=== PATIENT | male | born 1995 | race Caucasian/White ===

== ENCOUNTER 2019-04-18 15:57 | Outpatient (CLI) | payer OTHER ==
--- NOTE | 2019-04-19 14:30 | MRI Report ---
Reason: UNSPECIFIED INJURY OF UNSPECIFIED LOWER LEG,INITIA Procedure Date: 04/18/2019 Accession Number: [id number] / [id number] Procedure: MRI - Knee LT W/O CPT Code: FULL RESULT: EXAM: LEFT KNEE MRI WITHOUT CONTRAST EXAM DATE: 04/18/2019 04:55 PM. CLINICAL HISTORY: Injury of unspecified lower leg, initial encounter.. Status post fall downstairs. COMPARISON: None. TECHNIQUE: Multiplanar, multisequence T1-weighted and fluid-sensitive sequences of the knee without contrast. Other: None. FINDINGS: Bones: Mild impaction fracture posterior margin lateral tibial plateau and to a lesser extent medial tibial plateau. Mild lateral patellar subluxation. Trochlear groove depth and tibial tubercle to trochlear groove distance within normal limits. Articular Cartilage: Unremarkable. Medial Meniscus: Radial tear throughout the central substance posterior horn and into the root. Lateral Meniscus: Radial tear through the substance adjacent to the free edge at the junction of the anterior horn and body. Cruciate Ligaments: Diffuse distortion anterior cruciate ligament. Intact fibers difficult to discern proximally. Torn fibers extend into the anterior intercondylar notch and along the posterior lateral margin medial femoral condyle. Posterior cruciate ligament intact. Collateral Ligaments: Mild thickening and adjacent edema proximal aspects intact medial and lateral collateral ligaments. Tendons: The quadriceps, patellar, semimembranosus, and popliteus tendons are unremarkable. Musculature: No fatty atrophy. Minimal edema in the vastus medialis and vastus lateralis muscles and popliteus muscle. Other: Large joint effusion. No popliteal cyst. 0.3 cm triangular-shaped filling defect in the fluid at the posterior medial aspect intercondylar notch. The medial and lateral retinacula are intact. Mild subcutaneous edema anteriorly. Mild reactive edema in the fat pads. IMPRESSION: 1. Likely complete disruption anterior cruciate ligament. 2. Grade 1 sprains medial and lateral collateral ligaments. 3. Diffuse radial tear posterior horn and root medial meniscus. 4. Small radial tear anterior horn lateral meniscus. 5. Large joint effusion. Possible 0.3 cm intra-articular body versus focal synovitis posteriorly. 6. Mild impaction fractures posterior margins lateral and medial tibial plateaus. RADIA
== END 2019-04-18 15:58 | disposition home or self-care (01) ==
LOC: DI 15:57
PROVIDERS: ATTEND Physician Assistant
DX: S83.422A Sprain of lateral collateral ligament of left knee, initial encounter (principal); S83.412A Sprain of medial collateral ligament of left knee, initial encounter; S83.282A Other tear of lateral meniscus, current injury, left knee, initial encounter; S83.242A Other tear of medial meniscus, current injury, left knee, initial encounter; M25.462 Effusion, left knee

== ENCOUNTER 2019-05-17 07:16 | Day surgery (SDC) | payer OTHER ==
[2019-05-17] MEDS ORDERED: CEFAZOLIN SODIUM IN 0.9 % NACL 0 GM/0 ML BAG IV ONE (07:31)
[2019-05-17 07:41] VITALS: BP 128/80
[2019-05-17] MEDS ORDERED: LACTATED RINGERS 1,000 ML IV ONE (08:04)
--- NOTE | 2019-05-17 08:20 | ANESTHESIA ---
Pre-Anesthesia VS, & Labs - Diagnosis left ACL repair - Procedure Left ACL repair Vital Signs: Temp Pulse Resp BP Pulse Ox 36.3 C L 65 18 128/80 97 05/17/19 07:25 05/17/19 07:25 05/17/19 07:25 05/17/19 07:25 05/17/19 07:25 Height 5 ft 10 in Weight (kg) 94.8 kg - NPO >8 hours - Lab Results Lab results reviewed: No Home Medications and Allergies Home Medications: Ambulatory Orders No Known Home Medications 05/15/19 No Known Home Medications 05/15/19 Allergies/Adverse Reactions: Allergies Allergy/AdvReac Type Severity Reaction Status Date / Time No Known Drug Allergies Allergy Verified 05/15/19 11:45 Anes History & Medical History - Anesthetic History Anesthesia Complications: reports: No previous complications Family history of Anesthesia Complications: Denies Family history of Malignant Hyperthermia: Denies - Medical History Cardiovascular: reports: None Pulmonary: reports: None Gastrointestinal: reports: None Urinary: reports: None Neuro: reports: None Musculoskeletal: reports: Other Endocrine/Autoimmune: reports: None Blood Disorders: reports: None Skin: reports: None Smoking Status: Never smoker Psychosocial: reports: No issues indicated Exam General: Alert, Oriented x3, Cooperative Dental: WNL Mouth Opening: Greater than 4 Fingerbreadths Neck Mobility: Normal Mallampati classification: I Thyromental Distance: greater than 6 cm Respiratory: Lungs clear Cardiovascular: Regular rate Mental/Cognitive Status: Alert/Oriented X3 Cognitive Status: Within normal limits Plan Anesthesia Type: General, Femoral Block Consent for Procedure(s) Verified and Reviewed: Yes Code Status: Attempt Resuscitation ASA classification: 1-Healthy patient Is this case an emergency?: No
[2019-05-17] MEDS ORDERED: BUPIVACAINE 0.25%-EPI 1:200000 PF 30 ML VIAL ONE ×2 (08:34→08:35)
[2019-05-17] MEDS ORDERED: EPINEPHrine 1 MG/ML AMP ONE (08:36)
== END 2019-05-17 07:17 | disposition home or self-care (01) ==
LOC: SDS 07:16
PROVIDERS: ATTEND Orthopaedic Surgery
DX: S80.812A Abrasion, left lower leg, initial encounter (principal); Z53.09 Procedure and treatment not carried out because of other contraindication; X58.XXXA Exposure to other specified factors, initial encounter

== ENCOUNTER 2019-06-01 07:24 | Day surgery (SDC) | payer OTHER ==
[2019-06-01] MEDS ORDERED: ONDANSETRON 4 MG/2 ML VIAL IVP ONE (07:25)
[2019-06-01] MEDS ORDERED: PROPOFOL 200 MG/20 ML VIAL IVP ONE (07:25)
[2019-06-01] MEDS ORDERED: ROCURONIUM 50 MG/5 ML VIAL IVP ONE (07:25)
[2019-06-01] MEDS ORDERED: GLYCOPYRROLATE 1 MG/5 ML VIAL IVP ONE (07:25)
[2019-06-01] MEDS ORDERED: KETOROLAC 30 MG/ML VIAL IVP ONE (07:25)
[2019-06-01] MEDS ORDERED: fentaNYL 100 MCG/2 ML VIAL IVP ONE (07:25)
[2019-06-01] MEDS ORDERED: HYDROmorphone 1 MG/ML CARPUJECT IVP ONE (07:25)
[2019-06-01] MEDS ORDERED: MIDAZOLAM 2 MG/2 ML VIAL IVP ONE (07:25)
[2019-06-01] MEDS ORDERED: NEOSTIGMINE 1 MG/1 ML 10 ML MDV IVP ONE (07:25)
[2019-06-01] MEDS ORDERED: ACETAMINOPHEN 1,000 MG/100 ML 100 ML IV ONE (07:25)
[2019-06-01] MEDS ORDERED: LACTATED RINGERS 1,000 ML IV ONE ×2 (07:43→10:04)
[2019-06-01] MEDS ORDERED: EPINEPHrine 1 MG/ML AMP ONE (08:03)
[2019-06-01] MEDS ORDERED: CEFAZOLIN SODIUM IN 0.9 % NACL 2 GM/100 ML BAG IV ONE (08:04)
[2019-06-01] MEDS ORDERED: BUPIVACAINE 0.25% PF 30 ML VIAL ONE ×2 (08:04→09:05)
--- NOTE | 2019-06-01 08:05 | ANESTHESIA ---
Pre-Anesthesia VS, & Labs - Diagnosis left ACL and meniscal tears - Procedure left ACL repair, left meniscal tear Height 5 ft 10 in - NPO >8 hours Home Medications and Allergies No Known Home Medications 05/15/19 Allergies/Adverse Reactions: Allergies Allergy/AdvReac Type Severity Reaction Status Date / Time No Known Drug Allergies Allergy Verified 05/15/19 11:45 Anes History & Medical History - Anesthetic History Anesthesia Complications: reports: No previous complications Family history of Anesthesia Complications: Denies Family history of Malignant Hyperthermia: Denies - Medical History Cardiovascular: reports: None Pulmonary: reports: None Gastrointestinal: reports: None Urinary: reports: None Neuro: reports: None Musculoskeletal: reports: Other Endocrine/Autoimmune: reports: None Blood Disorders: reports: None Skin: reports: None Smoking Status: Never smoker Exam General: Alert Dental: WNL Mallampati classification: II Thyromental Distance: greater than 6 cm Respiratory: Lungs clear Cardiovascular: Regular rate, Normal S1, Normal S2 Plan Anesthesia Type: General Consent for Procedure(s) Verified and Reviewed: Yes Code Status: Attempt Resuscitation ASA classification: 1-Healthy patient Is this case an emergency?: No
[2019-06-01] MEDS ORDERED: BUPIVACAINE 0.25% PF 30 ML VIAL SUBQ ONE ×2 (09:49→11:43)
--- NOTE | 2019-06-01 10:01 | ANESTHESIA PROCEDURE NOTE ---
Diagnosis: ACL tear left knee Procedure: left femoral nerve block Height and Weight: Height 5 ft 10 in Weight (kg) 90 kg Vital Signs: Temp Pulse Resp BP Pulse Ox 36.1 C L 74 15 126/81 H 95 06/01/19 07:47 06/01/19 07:47 06/01/19 07:47 06/01/19 07:47 06/01/19 07:47 Allergies No Known Drug Allergies Allergy (Verified 05/15/19 11:45) Requesting Provider: Von Location: [facility] ASA classification: 1-Healthy patient Is this case an emergency?: No Anes. Monitoring and Equipment: Non-invasive BP, Pulse oximetery Anes. Procedure Start Time: 09:50 Anes. Procedure Stop Time: 09:58 Procedure Notes: Patient sedated with Fentanyl 100mcg, Versed 2mg. US guided FNB, with clear view of FA/FN. 22 G stimuplex needle 50mm under guidance, needle in view prior to injection. 0.5 Bupivicaine 30cc with 150 mcg epinephrine and 8mg Decadron added injected in 5cc increments, patient tolerated well.
[2019-06-01] MEDS ORDERED: oxyCODONE 5 MG TABLET PO PRN (12:10)
[2019-06-01] MEDS ORDERED: ONDANSETRON 4 MG/2 ML VIAL IVP PRN (12:10)
--- NOTE | 2019-06-01 12:20 | OPERATIVE REPORT ---
Operative Report - Other Other Information/Narrative: Date of Surgery: 01 June 2019 Pre-Op Diagnosis: Left ACL tear, possible medial meniscus tear, possible lateral meniscus tear Procedure: Left ACL reconstruction with patellar tendon autograft, left lateral meniscus debridement Postop Diagnosis: Left ACL tear, lateral meniscus tear Primary Surgeon: Benedict Longoria Secondary Surgeon: Andreas Lainez Complications: None Tourniquet Time: 130 minutes EBL: 25 Implants: Arthrex BTB Tightrope. Arthrex 9 mm x 20 mm Metal Interference Screw Graft Dimensions: Patellar bone block was 22 mm. Tibial bone block was 30 mm. Total length was 97. Tunnel Size: 10 mm Postoperative Protocol: Typical ACL without modification Indication For Surgery: 23-year-old male sustained a knee injury in March of this year. He underwent physical therapy he has had persistent pain and instability with an examination consistent with an ACL tear and meniscus injuries. The medial meniscus tear was peripheral and on the MRI it looks like it may have healed we discussed nonoperative and operative management. He desired to return to cutting sports and had instability with day-to-day living so surgery was indicated. The risks, benefits, and alternatives were discussed. Risks include pain, bleeding, infection, knee stiffness, graft rupture, graft harvest pain, damage to nearby structures and cartilage, lack of symptom relief, need for further surgery, DVT, PE, stroke, and . Written consent was obtained. Examination Under Anesthesia: ROM showed full extension but flexion to 120, flexion to 125 was obtained and some popping was felt. Stable dial at 30 & 90 degrees. Stable to varus and valgus stressing at 0 & 30 degrees. 2A Nini. Abnormal Pivot shift. No mechanical sensation Diagnostic Arthroscopy: None loose bodies. Synovium injected and prolific especially near the fat pad. Patella cartilage intact. Trochlear cartilage superficial linear fissuring. Medial femoral condyle cartilage showed some mottling and very superficial marbling. Medial tibial plateau cartilage intact. Medial meniscus no unstable tear was appreciated, it was probed extensively from the top and the bottom. ACL was torn from the femur and scarred to the PCL. PCL was intact. Lateral femoral condyle cartilage normal. Lateral tibial plateau cartilage normal. Lateral meniscus radial tear of the body in the white white zone which was debrided to a smooth contour and a stable base. Procedure in Detail: The patient was met in the pre-operative hold area on the day of the procedure. The operative extremity was signed and questions were answered. The patient was brought to the operating room and a general anesthetic was administered. Supine position was used and bony prominences were padded. An examination under anesthesia was performed. Standard prepping and draping was performed. A time out confirmed patient identification, laterality, procedure, allergies, antibiotics, and images. An Esmarch was used to exsanguinate the limb and the tourniquet was elevated to 250 mmHg. Patellar Tendon Graft [place]: A 6 cm incision was made just medial to the midline of the knee from the inferior pole of the patellar tendon to the tibial tubercle. Sharp dissection was brought down to the peritenon and full-thickness skin flaps were created. I then made a midline longitudinal incision in the peritenon and dissected it off the underlying patellar tendon. I then measured the width of the tendon and made bejarano for the central third. A 10 blade was used to cut the tendon at these bejarano in line with its fibers from the patella to the tibial tubercle. I then used Bovie electrocautery to pramod out my patellar and tibial bone blocks at 22 mm for the patella and a 30 mm for the tibia. I then straighten the knee and harvested a triangular bone block from the patella and a trapezoidal bone block from the tibia using a sagittal saw and a curved osteotome. There were no associated fractures. I then brought the graft to the back table and prepped it for the tibia to be 10 mm and the patella to be 9.5 mm. The patella was bulletized in a single 2.0 mm drill hole was placed. 2 drill holes were placed in the tibia. A standard diagnostic arthroscopy of the knee was performed through ant erolateral and anteromedial portal sites. The anteromedial portal was created under direct visualization after localizing with a spinal needle. The findings can be found above. I then proceeded to debride the lateral meniscus with biters and a shaver until a stable smooth edge was. All the work was done in the white white zone. ACL Prep: I then used a sucker shaver and a radiofrequency ablation wand to release all residual ACL tissue off of the lateral wall. I debrided all excess tissue from the notch. I placed the camera into the anteromedial portal and ensured that I was cleared all the way to the back wall. I then brought the flip cutter aiming device through the lateral portal. I positioned it into the central position of the [place] ACL footprint on the femur ensuring to leave a 2 mm back wall and stay off of the distal articular cartilage. Once satisfied with the position, the bullet was brought down to the skin and a pramod was made. A 2 cm longitudinal skin incision was made and the IT band was split in line with its fibers. A sen rake was used to retract the IT band posterior and the bullet was brought down to the lateral femoral wall. An appropriately sized flip cutter was then drilled into the notch. It was then flipped and the lateral wall was scored confirming an appropriate position. The bullet was then malleted into place and a 25mm femoral tunnel was drilled. Bony debris was removed with a shaver. A fiberstick suture was brought into the joint, retrieved out the lateral portal, and clamped to itself. I then identified the ACL footprint on the tibia and set the tibial guide at 55. I aimed to have the guide pin come out 7 mm anterior to the PCL and in line with the posterior borders of the anterior horn of the lateral meniscus, on the lateral border of the medial tibial spine. The guidewire was then brought into the joint. The knee was then straightened to confirm that it would not impinge on the notch. The guidewire was clamped with a Sherman. The skin was then protected and the tibial tunnel was drilled with the appropriate sized reamer. The fiberwire was then brought through the tibial tunnel. The graft was then loaded onto the tightrope and the graft was marked at end of the bone block. The tightrope sutures were then passed and the button was brought out of the skin over the lateral femur. Point the femoral bone block was in the notch. I then grabbed the bone block with a [place] and pushed posteriorly to be in line with the femoral tunnel. The bone block was then delivered into the femoral tunnel and the ink bejarano could no longer be seen. I then sequentially tightened the tight rope sutures and guided the button back down beneath the IT band and visualized it on the lateral femoral cortex. The knee was then cycled 20 times with tension on the graft. I then placed a large bump under the distal femur the pulled on the tibial bone block sutures. There was 2 mm of excess bone block coming from the tibia. A posterior drawer was placed on to the proximal tibia. The guidewire was then placed into the tibial tunnel and the tibial screw was placed with excellent bony purchase. Nini had been restored. I then brought the arthroscope back into the joint and probed the graft finding it to have excellent tension. Final images were taken. Tight rope sutures were then tied with 6 knots. Excess tibial bone block was removed with a rongeur and the wounds were copiously irrigated. I then placed morselized bone into the patellar defect and DBX putty into the tibial defect. The peritenon was then closed with a running 0 Vicryl. The IT band was closed with interrupted 0 Vicryl, the subdermal tissues with 2 O Vicryl, and the skin with running Monocryl. Steri-Strips were applied and 20 cc of 0.5% Marcaine was placed under the incisions. The tourniquet was then dropped and a sterile dressing was placed. The ROM brace was placed and was locked out in full extension. He was awakened and transferred to the recovery room.
[2019-06-01] MEDS: fentaNYL 100 MCG/2 ML VIAL ONE ×2 (12:36→12:41)
[2019-06-01] MEDS ORDERED: oxyCODONE 5 MG TABLET ONE (13:15)
[2019-06-01 15:12] VITALS: BP 132/78
== END 2019-06-01 07:25 | disposition home or self-care (01) ==
LOC: SDS 07:24
PROVIDERS: ATTEND Orthopaedic Surgery
PROC: 0SBD4ZZ Excision of Left Knee Joint, Percutaneous Endoscopic Approach (ICD-10-PCS; 2019-06-01)
PROC: 0LBR0ZZ Excision of Left Knee Tendon, Open Approach (ICD-10-PCS; 2019-06-01)
PROC: 0MRP47Z Replacement of Left Knee Bursa and Ligament with Autologous Tissue Substitute, Percutaneous Endoscopic Approach (ICD-10-PCS; principal; 2019-06-01 09:15)
DX: S83.512A Sprain of anterior cruciate ligament of left knee, initial encounter (principal); S83.282A Other tear of lateral meniscus, current injury, left knee, initial encounter; W10.9XXA Fall (on) (from) unspecified stairs and steps, initial encounter
CPT/HCPCS: 29881; 29888; A9270; C1713; J0131; J0690; J1170; J7120